=== PATIENT | male | born 1995 | race Caucasian/White ===

== ENCOUNTER 2022-10-16 11:36 | Emergency (ER) | payer SELFPAY ==
[2022-10-16 12:24] LABS: HEMATOCRIT 44.3 % (38.4-49.7); HEMOGLOBIN 15.3 g/dL (12.9-16.9); MEAN CORPUSCULAR HEMOGLOBIN 29.5 pg (31.6-35.5); MEAN CORPUSCULAR HGB CONC 34.5 g/dL (31.6-35.5); MEAN CORPUSCULAR VOLUME 85.5 fL (81.4-99.0); RED BLOOD CELL COUNT 5.18 M/uL (4.14-5.76); WHITE BLOOD CELL COUNT,WBC 12.5 K/uL (3.2-11.0)
[2022-10-16 12:25] LABS: BICARBONATE,VENOUS 26.2 mmol/L; CARBOXYHEMOGLOBIN 1.8 % (0.0-1.6); METHEMOGLOBIN 0.9 %; O2 SATURATION VENOUS 42.9; OXYHEMOGLOBIN 41.7 %; PCO2 VENOUS 41.7 mm/Hg; PH,VENOUS 7.416 (7.350-7.450); TOTAL HEMOGLOBIN 15.8 g/dL (13.5-18.0)
[2022-10-16 12:26] LABS: PO2 VENOUS 25.9 mm/Hg
[2022-10-16 12:46] LABS: A/G RATIO 1.3 (1.2-2.2); ALANINE AMINOTRANSFERASE,ALT 40 U/L (12-78); ALBUMIN 4.3 g/dL (3.4-5.0); ALKALINE PHOSPHATASE 79 U/L (46-116); ANION GAP 7.9 mmol/L (5.0-14.0); ASPARTATE AMNIOTRANSFERASE,AST 32 U/L (15-37); BILIRUBIN TOTAL 0.6 mg/dL (0.2-1.0); BLOOD UREA NITROGEN,BUN 16 mg/dL (7-18); CALCIUM 9.2 mg/dL (8.5-10.1); CARBON DIOXIDE,CO2 28 mmol/L (21-32); CHLORIDE,CL 104 mmol/L (100-108); CREATININE 1.1 mg/dL (0.8-1.3); EST CRCL DRUG DOSING (CG) 108.39 mL/min; ESTIMATED GFR 95 mL/min (>60); GLUCOSE RANDOM 98 mg/dL (74-106); MAGNESIUM 1.8 mg/dL (1.8-2.4); POTASSIUM,K 5.1 mmol/L (3.6-5.2); PROTEIN TOTAL,TP 7.6 g/dL (6.4-8.2); SODIUM,NA 140 mmol/L (140-148)
== END 2022-10-16 13:48 | disposition home or self-care (01) ==
LOC: JP.ED 11:36
DX: S50.02XA Contusion of left elbow, initial encounter (principal); R55 Syncope and collapse; W22.8XXA Striking against or struck by other objects, initial encounter; Y99.0 Civilian activity done for income or pay
CPT/HCPCS: 36415; 70450; 70450-26; 73070-26-LT; 73070-LT; 80053; 80307; 82803; 83735; 85027; 93005; 99284